=== PATIENT | male | born 1990 | race African-American/Black ===

== ENCOUNTER 2016-06-20 09:40 | Emergency (ER) | payer SELFPAY ==
[~2016-06-20] VITALS: Ht 190.5 cm; Wt 90.0 kg
[~2016-06-20 09:40] MED LIST: BACT800T5 PO; CEPH500C3 PO; IBUP800T23 PO; NAPR500 PO; PENI500T PO
[2016-06-20 09:41] VITALS: BP 177/98; PULSE 96; RESP 16; TEMP 98.2; O2SAT 98
== END 2016-06-20 11:10 | disposition left against medical advice (07) ==
LOC: NED 09:40
DX: Z53.21 Procedure and treatment not carried out due to patient leaving prior to being seen by health care provider (principal)
CPT/HCPCS: 99281